=== PATIENT | female | born 1975 | race Caucasian/White ===

== ENCOUNTER 2017-02-03 10:17 | Emergency (ER) | payer BC ==
[~2017-02-03] VITALS: Ht 167.6 cm; Wt 68.0 kg
[2017-02-03 10:19] VITALS: BP 120/76; PULSE 88; RESP 24; TEMP 97.7; O2SAT 100
[2017-02-03] MEDS ORDERED: ENPRTAB PO (10:53)
[2017-02-03] MEDS ORDERED: BUPR150XL PO (10:53)
[2017-02-03] MEDS ORDERED: LEVO50TA4 PO (10:53)
[2017-02-03] MEDS ORDERED: LORA10TA PO (10:53)
[2017-02-03 11:10] LABS: AUTOMATED NEUTROPHIL # 2.7 TH/MM3 (1.8-7.7); BASOPHIL % 0.5 % (0.0-2.0); EOSINOPHIL % 0.1 % (0.0-4.0); HEMATOCRIT 40.6 % (35.0-46.0); HEMO FLAGS DIFF FINAL; LYMPH % 9.4 % (9.0-44.0); LYMPHOCYTE # 0.3 TH/MM3 (1.0-4.8); MEAN CELL VOLUME 95.5 FL (80.0-100.0); MEAN CORPUSCULAR HEMOGLOBIN 32.6 PG (27.0-34.0); MEAN CORPUSCULAR HGB CONC 34.1 % (32.0-36.0); MONO % 10.9 % (0.0-8.0); NEUT % 79.1 % (16.0-70.0); PLATELET COUNT 285 TH/MM3 (150-450); RED BLOOD COUNT 4.25 MIL/MM3 (4.00-5.30); RED CELL DISTRIBUTION WIDTH 12.5 % (11.6-17.2); WHITE BLOOD COUNT 3.5 TH/MM3 (4.0-11.0)
[2017-02-03 11:23] LABS: ALT (GPT) 14 U/L (10-53); ANION GAP 7 MEQ/L (5-15); AST (GOT) 12 U/L (15-37); BICARBONATE 25.2 MEQ/L (21.0-32.0); BLOOD UREA NITROGEN 9 MG/DL (7-18); CHLORIDE 107 MEQ/L (98-107); GLOMERULAR FILTRATION RATE 89 ML/MIN (>89); SODIUM (NA) 139 MEQ/L (136-145)
[2017-02-03 11:24] VITALS: RESP 16; O2SAT 97
[2017-02-03 11:26] LABS: ALKALINE PHOSPHATASE 124 U/L (45-117); TOTAL BILIRUBIN ADULT 0.5 MG/DL (0.2-1.0)
[2017-02-03] MEDS ORDERED: SODIUM CHLOR 0.9% 1000 ML INJ 1,000 ML IV ONE (11:30)
[2017-02-03] MEDS ORDERED: ONDANSETRON HCL 4 MG/2 ML VIAL IV PUSH ONE (11:30)
--- NOTE | 2017-02-03 11:46 | PD ---
HPI Chief Complaint: Abdominal Pain Time Seen by Provider: 11:20 Travel History International Travel<30 days: No Contact w/Intl Traveler<30days: No Traveled to known affect area: No History of Present Illness HPI Patient comes in complaining of abdominal pain, nausea, vomiting, and diarrhea she awoke with this morning. Patient states she tried drinking Gatorade but vomited it back up. Denies any chest pain, shortness of breath, fevers, recent antibiotic use, , blood in vomit or diarrhea, or known sick contacts. Patient reports she is visiting from [place] and goes back home tomorrow. PFSH Past Medical History Depression: Yes Thyroid Disease: Yes (hypo) ?: Not LMP: JANUARY 2017 Past Surgical History Tonsillectomy: Yes Social History Alcohol Use: No Tobacco Use: No Substance Use: No Allergies-Medications (Allergen,Severity, Reaction): Coded Allergies: No Known Allergies (Unverified , 02/03/17) Reported Meds & Prescriptions Reported Meds & Active Scripts Active Bentyl (Dicyclomine HCl) 20 Mg Tab 20 Mg PO Q8HR PRN Zofran Odt (Ondansetron Odt) 4 Mg Tab 4 Mg SL Q6HR PRN Reported Loratadine 10 Mg Tab 10 Mg PO DAILY Enpresse-28 (Levonorgestrel-Ethinyl Estradiol (Triphasic)) 6-5-10 Tab 1 Tab PO DAILY Wellbutrin Xl 24 HR (Bupropion HCl) Unknown Strength Tab Unknown Dose PO DAILY Levothyroxine (Levothyroxine Sodium) Unknown Strength Tab Unknown Dose PO DAILY Review of Systems Except as stated in HPI: all other systems reviewed are Neg Physical Exam Narrative GENERAL: Well-developed, well nourished, in no acute distress, and non-ill appearing. SKIN: Focused skin assessment warm and dry. HEAD: Atraumatic. Normocephalic. EYES: Pupils equal and round. EOMI. No scleral icterus. No injection or drainage. ENT: No nasal bleeding or discharge. Mucous membranes pink and moist. NECK: Trachea midline. No JVD. Supple. No nuclear rigidity. CARDIOVASCULAR: Regular rate and rhythm. No murmur appreciated. RESPIRATORY: No accessory muscle use. No respiratory distress. Clear to auscultation. Breath sounds equal bilaterally. GASTROINTESTINAL: Abdomen soft, non-tender, nondistended. Hepatic and splenic margins not palpable. Normal bowel sounds 4. No pulsatile mass. MUSCULOSKELETAL: No obvious deformities. No clubbing. No cyanosis. No edema. Full range of motion. NEUROLOGICAL: Awake and alert. No obvious cranial nerve deficits. Motor grossly within normal limits. Normal speech. PSYCHIATRIC: Appropriate mood and affect; insight and judgment normal. Data Data Last Documented VS Vital Signs Date Time Temp Pulse Resp B/P Pulse Ox O2 Delivery O2 Flow Rate FiO2 02/03/17 11:24 16 97 Room Air 02/03/17 10:19 97.7 88 120/76 Orders Complete Blood Count With Diff (02/03/17 10:54) Comprehensive Metabolic Panel (02/03/17 10:54) Urinalysis - C+S If Indicated (02/03/17 10:54) Iv Access Insert/Monitor (02/03/17 10:54) Oxygen Administration (02/03/17 10:54) Oximetry (02/03/17 10:54) Lipase (02/03/17 10:54) Ed Urine Pregnancytest Poc (02/03/17 10:54) Influenzae A/B Antigen (02/03/17 11:17) Ondansetron Inj (Zofran Inj) (02/03/17 11:30) Sodium Chlor 0.9% 1000 Ml Inj (Ns 1000 M (02/03/17 11:30) Ketorolac Inj (Toradol Inj) (02/03/17 12:30) Oral Rehydration (02/03/17 12:25) Labs Laboratory Tests Test 02/03/17 02/03/17 11:00 12:18 White Blood Count 3.5 TH/MM3 Red Blood Count 4.25 MIL/MM3 Hemoglobin 13.8 GM/DL Hematocrit 40.6 % Mean Corpuscular Volume 95.5 FL Mean Corpuscular Hemoglobin 32.6 PG Mean Corpuscular Hemoglobin 34.1 % Concent Red Cell Distribution Width 12.5 % Platelet Count 285 TH/MM3 Mean Platelet Volume 8.7 FL Neutrophils (%) (Auto) 79.1 % Lymphocytes (%) (Auto) 9.4 % Monocytes (%) (Auto) 10.9 % Eosinophils (%) (Auto) 0.1 % Basophils (%) (Auto) 0.5 % Neutrophils # (Auto) 2.7 TH/MM3 Lymphocytes # (Auto) 0.3 TH/MM3 Monocytes # (Auto) 0.4 TH/MM3 Eosinophils # (Auto) 0.0 TH/MM3 Basophils # (Auto) 0.0 TH/MM3 CBC Comment DIFF FINAL Differential Comment Sodium Level 139 MEQ/L Potassium Level 4.0 MEQ/L Chloride Level 107 MEQ/L Carbon Dioxide Level 25.2 MEQ/L Anion Gap 7 MEQ/L Blood Urea Nitrogen 9 MG/DL Creatinine 0.72 MG/DL Estimat Glomerular Filtration 89 ML/MIN Rate Random Glucose 116 MG/DL Calcium Level 8.7 MG/DL Total Bilirubin 0.5 MG/DL Aspartate Amino Transf 12 U/L (AST/SGOT) Alanine Aminotransferase 14 U/L (ALT/SGPT) Alkaline Phosphatase 124 U/L Total Protein 7.8 GM/DL Albumin 3.6 GM/DL Lipase 92 U/L Urine Color YELLOW Urine Turbidity CLEAR Urine pH 6.0 Urine Specific [place] 1.018 Urine Protein NEG mg/dL Urine Glucose (UA) NEG mg/dL Urine Ketones 40 mg/dL Urine Occult Blood SMALL Urine Nitrite NEG Urine Bilirubin NEG Urine Urobilinogen LESS THAN 2.0 MG/DL Urine Leukocyte Esterase NEG Urine RBC 6 /hpf Urine WBC LESS THAN 1 /hpf Urine Squamous Epithelial 1 /hpf Cells Urine Bacteria OCC /hpf Microscopic Urinalysis Comment CULT NOT INDICATED MDM Medical Decision Making Medical Screen Exam Complete: Yes Emergency Medical Condition: Yes Differential Diagnosis Electrolyte abnormality, nausea, vomiting, diarrhea, UTI, dehydration, other Narrative Course The patient presented with abdominal pain vomiting and diarrhea. The patient appeared comfortable, hydrated and the abdominal exam was unremarkable and minimal to nontender to me, and without defined focal tenderness. Laboratory evaluation revealed no significant abnormality. There was no evidence of an acute, surgical abdomen at this time. There was no clinical evidence to support bowel obstruction, cholecystitis/cholelithiasis, pancreatitis, perforation of gastric ulcer, colitis, diverticulitis, bacterial peritonitis, obstruction, volvulus, early appendicitis, or hernial incarceration or strangulation at this time. There was no evidence to support vascular pathology such as AAA, mesenteric ischemia, nor significant GIB. There was also no clinical evidence by history, exam or risk factors to suggest atypical presentation of cardiac disease such as ACS, AMI or atypical angina. No evidence to suggest genitourinary etiology as well. During the course of the ED visit, the patient was given IVF and the patient noted improvement. The patient was able to tolerate fluids at discharge. Clinical picture was discussed with the patient, as well as plan of care. The patient was instructed to follow up with their physician. Abdominal pain warnings were discussed with the patient. The patient is to return if worsens, pain worsens or changes, develop fever, inability to tolerate fluids with or without vomiting, unable to establish follow up or as needed. The patient agrees with plan. Patient in no obvious distress upon re-evaluation. All pertinent laboratory result(s) discussed with patient/family. Discussed this patient with Dr. Solares, who saw and evaluated the patient and is in agreement with plan of care and disposition. Any questions/concerns in reference to patient diagnosis/ condition discussed and clarified prior to patient's discharge. Reinforced sheer importance of close follow up with patient's primary physician or primary care clinic. Instructed patient to return to ED immediately, if symptoms return/ worsen. Pt showed understanding of above instructions. Further instructions and recommendations were detailed in discharge paperwork. Pt ambulated without difficulty out of ED at discharge. Diagnosis Primary Impression: Gastroenteritis Additional Impression: Hematuria Patient Instructions: Gastroenteritis (ED), General Instructions, Hematuria (ED ) Additional Instructions: Follow-up with your primary care physician in 3-5 days for reevaluation and further evaluation of blood noted in your urine today. Take all medication as prescribed. Drink plenty of non-caffeinated and nonalcoholic fluids. Return to the emergency department if symptoms get worse. Med/Other Pt SpecificInfo: Prescription(s) given Scripts Dicyclomine (Bentyl)20 Mg Tab20 Mg PO Q8HR PRN (DIARRHEA) #12 TAB Ref 0 Prov:Chanelle Solares MD 02/03/17 Ondansetron Odt (Zofran Odt)4 Mg Tab4 Mg SL Q6HR PRN (Nausea/Vomiting) #12 TAB Ref 0 Prov:Chanelle Solares MD 02/03/17 Disposition: 01 DISCHARGE HOME Condition: Stable Adan Yo Feb 03, 2017 11:46
[2017-02-03] MEDS ORDERED: KETOROLAC TROMETHAMINE 30 MG/ML (IVP) VIAL IV PUSH ONE (12:30)
[2017-02-03 12:42] LABS: BACTERIA, URINE OCC /hpf; BLOOD, URINE SMALL (NEG); COMMENT (UR) CULT NOT INDICATED; CULTURE IF INDICATED CULT NOT INDICATED; GLUCOSE,URINE NEG (NEG); KETONE, URINE 40 mg/dL (NEG); NITRITE,URINE NEG (NEG); SQUAMOUS EPITHELIAL CELL URINE 1 /hpf (0-5); URINE COLOR YELLOW (YELLW/STRAW)
[2017-02-03] MEDS ORDERED: ZOFR4TAB3 SL (13:08)
[2017-02-03] MEDS ORDERED: BENT20TA PO (13:08)
--- NOTE | 2017-02-03 13:18 | PD ---
Physical Exam Narrative GENERAL: Well-nourished, well-developed patient. SKIN: Warm and dry. HEAD: Normocephalic and atraumatic. EYES: No injection or drainage. ENT: No nasal drainage noted. NECK: Supple, trachea midline. CARDIOVASCULAR: Regular rate and rhythm RESPIRATORY: no increased effort. No accessory muscle use. GASTROINTESTINAL: Abdomen soft, non-tender, nondistended. NEUROLOGICAL: Awake and alert. Motor and sensory grossly within normal limits. Normal speech. Data Data Last Documented VS Vital Signs Date Time Temp Pulse Resp B/P Pulse Ox O2 Delivery O2 Flow Rate FiO2 02/03/17 11:24 16 97 Room Air 02/03/17 10:19 97.7 88 120/76 Orders Complete Blood Count With Diff (02/03/17 10:54) Comprehensive Metabolic Panel (02/03/17 10:54) Urinalysis - C+S If Indicated (02/03/17 10:54) Iv Access Insert/Monitor (02/03/17 10:54) Oxygen Administration (02/03/17 10:54) Oximetry (02/03/17 10:54) Lipase (02/03/17 10:54) Ed Urine Pregnancytest Poc (02/03/17 10:54) Influenzae A/B Antigen (02/03/17 11:17) Ondansetron Inj (Zofran Inj) (02/03/17 11:30) Sodium Chlor 0.9% 1000 Ml Inj (Ns 1000 M (02/03/17 11:30) Ketorolac Inj (Toradol Inj) (02/03/17 12:30) Oral Rehydration (02/03/17 12:25) Labs Laboratory Tests Test 02/03/17 02/03/17 11:00 12:18 White Blood Count 3.5 TH/MM3 Red Blood Count 4.25 MIL/MM3 Hemoglobin 13.8 GM/DL Hematocrit 40.6 % Mean Corpuscular Volume 95.5 FL Mean Corpuscular Hemoglobin 32.6 PG Mean Corpuscular Hemoglobin 34.1 % Concent Red Cell Distribution Width 12.5 % Platelet Count 285 TH/MM3 Mean Platelet Volume 8.7 FL Neutrophils (%) (Auto) 79.1 % Lymphocytes (%) (Auto) 9.4 % Monocytes (%) (Auto) 10.9 % Eosinophils (%) (Auto) 0.1 % Basophils (%) (Auto) 0.5 % Neutrophils # (Auto) 2.7 TH/MM3 Lymphocytes # (Auto) 0.3 TH/MM3 Monocytes # (Auto) 0.4 TH/MM3 Eosinophils # (Auto) 0.0 TH/MM3 Basophils # (Auto) 0.0 TH/MM3 CBC Comment DIFF FINAL Differential Comment Sodium Level 139 MEQ/L Potassium Level 4.0 MEQ/L Chloride Level 107 MEQ/L Carbon Dioxide Level 25.2 MEQ/L Anion Gap 7 MEQ/L Blood Urea Nitrogen 9 MG/DL Creatinine 0.72 MG/DL Estimat Glomerular Filtration 89 ML/MIN Rate Random Glucose 116 MG/DL Calcium Level 8.7 MG/DL Total Bilirubin 0.5 MG/DL Aspartate Amino Transf 12 U/L (AST/SGOT) Alanine Aminotransferase 14 U/L (ALT/SGPT) Alkaline Phosphatase 124 U/L Total Protein 7.8 GM/DL Albumin 3.6 GM/DL Lipase 92 U/L Urine Color YELLOW Urine Turbidity CLEAR Urine pH 6.0 Urine Specific [place] 1.018 Urine Protein NEG mg/dL Urine Glucose (UA) NEG mg/dL Urine Ketones 40 mg/dL Urine Occult Blood SMALL Urine Nitrite NEG Urine Bilirubin NEG Urine Urobilinogen LESS THAN 2.0 MG/DL Urine Leukocyte Esterase NEG Urine RBC 6 /hpf Urine WBC LESS THAN 1 /hpf Urine Squamous Epithelial 1 /hpf Cells Urine Bacteria OCC /hpf Microscopic Urinalysis Comment CULT NOT INDICATED MDM Supervised Visit with WAYNE: Yes Interpretation(s) CBC & BMP Diagram 02/03/17 11:00 Narrative Course I, Dr. núñez, have reviewed the advance practice practitioner's documentation and am in agreement, met with the patient face to face, made the diagnosis, and the medical decision making was done by me. *My assessment and Findings: 41-year-old female presents while visiting here on vacation with vomiting and diarrhea with intermittent abdominal cramping. Blood work without emergent findings. Urinalysis shows blood without signs of infection. Patient agrees to no further testing here with outpatient testing to determine hematuria given benign abdominal exam and other testing. Given return instructions. tolerated po challenge here Diagnosis Primary Impression: Abdominal pain Additional Impressions: Hematuria Vomiting and diarrhea Patient Instructions: General Instructions, Gastroenteritis (ED), Hematuria (ED ) Additional Instruction: Follow-up with your primary care physician in 3-5 days for reevaluation and further evaluation of blood noted in your urine today. Take all medication as prescribed. Drink plenty of non-caffeinated and nonalcoholic fluids. Return to the emergency department if symptoms get worse. zofran as needed, return as needed Med/Other Pt SpecificInfo: Prescription(s) given Scripts Dicyclomine (Bentyl)20 Mg Tab20 Mg PO Q8HR PRN (DIARRHEA) #12 TAB Ref 0 Prov:Chanelle Núñez MD 02/03/17 Ondansetron Odt (Zofran Odt)4 Mg Tab4 Mg SL Q6HR PRN (Nausea/Vomiting) #12 TAB Ref 0 Prov:Chanelle Núñez MD 02/03/17 Disposition: 01 DISCHARGE HOME Condition: Stable Chanelle Núñez MD Feb 03, 2017 13:18
== END 2017-02-03 14:15 | disposition home or self-care (01) ==
LOC: NEPC 10:17
DX: K52.9 Noninfective gastroenteritis and colitis, unspecified (principal); R31.9 Hematuria, unspecified; R10.9 Unspecified abdominal pain; R11.10 Vomiting, unspecified; R19.7 Diarrhea, unspecified
CPT/HCPCS: 80053; 81001; 83690; 84703; 85025; 87804; 96374; 96375; 99284; J1885; J2405; J7030